=== PATIENT | female | born 1980 | race Caucasian/White ===

== ENCOUNTER 2021-04-30 11:00 | Outpatient (RCR) | payer OTHER, SELFPAY | END 2021-06-23 13:33 | disposition home or self-care (01) | LOC: HO.PTCHIC 11:00 | PROVIDERS: Visit Provider Physician Assistant Medical | DX: M54.6 Pain in thoracic spine (principal); M54.5 Low back pain | CPT/HCPCS: 97014; 97110; 97140; 97161 ==

== ENCOUNTER 2021-07-16 16:27 | Emergency (ER) | payer OTHER, SELFPAY ==
--- NOTE | ~2021-07-16 | XR_ITS ---
EXAMINATION: XR CHEST CLINICAL INFORMATION: Cough COMPARISON: None TECHNIQUE: Frontal view of the chest was obtained. FINDINGS: Lungs are clear. No consolidation, pneumothorax, or pleural effusion. Cardiac and mediastinal contours are normal. Pulmonary vasculature is unremarkable. Trachea is midline. Osseous structures are unremarkable. XR/XR chest 1V IMPRESSION: Normal chest radiograph
[2021-07-16 16:45] VITALS: BP 131/73; PULSE 86; RESP 14; TEMP 37.1; O2SAT 100; BMI 28.2
== END 2021-07-16 20:40 | disposition left against medical advice (07) ==
PROVIDERS: Emergency Provider Emergency Medicine; PCP Internal Medicine
DX: R05.9 Cough, unspecified (principal); R06.02 Shortness of breath
CPT/HCPCS: 71045; 99282; 99283

== ENCOUNTER 2022-06-18 12:32 | Emergency (ER) | payer OTHER, SELFPAY ==
--- NOTE | ~2022-06-18 | CT_ITS ---
EXAMINATION: CT HEAD WITHOUT CONTRAST CT CERVICAL SPINE WITHOUT CONTRAST CLINICAL INFORMATION: Head injury. COMPARISON: CT head 06/10/2013. TECHNIQUE: Mechanical Product Design Engineer images were obtained. CT imaging of the head and cervical spine was performed without contrast. Data was reformatted into multiplanar images at the acquisition workstation. This CT examination was performed using dose optimization techniques as appropriate, including one or more of the following: Automated exposure control, iterative reconstruction, and adjustment of technique factors (mA and/or kVp) according to patient size (this includes techniques or standardized protocols for targeted exams where dose is matched to indication/reason for exam). Fleischner Society criteria for the followup of incidental pulmonary nodules was implemented if appropriate. DLP: 812.96 mGy-cm. FINDINGS: Head: There is no acute intracranial hemorrhage or abnormal extra-axial collection. No intracranial mass effect or midline shift. Lateral and third ventricles are normal. No hydrocephalus. Smith-white matter differentiation is preserved and there is no evidence of acute territorial infarct. The calvarium and skull base are intact. Mastoid air cells and middle ear cavities are well aerated. Mild to moderate paranasal sinus disease primarily affecting the right maxillary sinus and right ethmoid air cells. Cervical spine: There is nonspecific reversal of the cervical or lordosis. Slight anterolisthesis of C5 on C6. Alignment is otherwise normal. Vertebral heights are preserved. No acute fracture. No abnormal prevertebral soft tissue swelling. Grossly no evidence of canal compromise. No bony neuroforaminal encroachment. Soft tissues of the neck including the thyroid gland are normal. Visualized lung apices are clear. CT/CT cervical spine wo IV con IMPRESSION: Unremarkable CT scan of the head and cervical spine.
[2022-06-18 12:58] VITALS: BP 136/73; PULSE 100; RESP 18; TEMP 36.2; O2SAT 98; BMI 34.3
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
== END 2022-06-18 14:55 | disposition home or self-care (01) ==
PROVIDERS: Emergency Provider Student in an Organized Health Care Education/Training Program; PCP Internal Medicine
DX: S06.0X0A Concussion without loss of consciousness, initial encounter (principal); M54.2 Cervicalgia; R51.9 Headache, unspecified; Y04.2XXA Assault by strike against or bumped into by another person, initial encounter; Y93.9 Activity, unspecified; Y92.009 Unspecified place in unspecified non-institutional (private) residence as the place of occurrence of the external cause; Y99.9 Unspecified external cause status
CPT/HCPCS: 70450; 72125; 99282; 99283

== ENCOUNTER 2023-12-21 17:30 | Emergency (ER) | payer OTHER, SELFPAY ==
--- NOTE | ~2023-12-21 | XR_ITS ---
EXAMINATION: XR FOOT, RIGHT XR ANKLE, RIGHT CLINICAL INFORMATION: Pain history of surgery COMPARISON: Right ankle radiograph from 11/15/2016 TECHNIQUE: 2 views right ankle 3 views of the right foot FINDINGS: No acute visible fracture or dislocation. The ankle mortise is symmetric. Mild hallux valgus. Plantar calcaneal heel spur. Enthesopathy at the Achilles tendon insertion site. Pes cavus. Joint space alignment otherwise maintained. Soft tissue prominence about the lateral malleolus. XR/XR foot RT min 3V IMPRESSION: 1. No acute visible fracture or dislocation. 2. Mild hallux valgus. 3. Plantar calcaneal heel spur. 4. Enthesopathy at the Achilles tendon insertion site.
--- NOTE | ~2023-12-21 | XR_ITS ---
EXAMINATION: XR FOOT, RIGHT XR ANKLE, RIGHT CLINICAL INFORMATION: Pain history of surgery COMPARISON: Right ankle radiograph from 11/15/2016 TECHNIQUE: 2 views right ankle 3 views of the right foot FINDINGS: No acute visible fracture or dislocation. The ankle mortise is symmetric. Mild hallux valgus. Plantar calcaneal heel spur. Enthesopathy at the Achilles tendon insertion site. Pes cavus. Joint space alignment otherwise maintained. Soft tissue prominence about the lateral malleolus. XR/XR ankle RT 2V IMPRESSION: 1. No acute visible fracture or dislocation. 2. Mild hallux valgus. 3. Plantar calcaneal heel spur. 4. Enthesopathy at the Achilles tendon insertion site.
[2023-12-21 17:35] VITALS: BP 125/63; PULSE 85; RESP 18; TEMP 36.6; O2SAT 98; BMI 37.1
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
[2023-12-21] MEDS: Acetaminophen 325 MG TABLET 650 MG PO (19:57)
[2023-12-21] MEDS: Ibuprofen 400 MG TABLET PO (19:57)
[2023-12-21 20:02] VITALS: BP 130/83; PULSE 67; RESP 16; TEMP 36.8; O2SAT 99
== END 2023-12-21 20:03 | disposition home or self-care (01) ==
PROVIDERS: Emergency Provider Student in an Organized Health Care Education/Training Program; PCP Internal Medicine
DX: M77.31 Calcaneal spur, right foot (principal); M25.571 Pain in right ankle and joints of right foot
CPT/HCPCS: 73600; 73630; 99283; 99284

== ENCOUNTER 2024-07-30 16:56 | Emergency (ER) | payer BC, SELFPAY ==
--- NOTE | ~2024-07-30 | XR_ITS ---
CLINICAL HISTORY: cough 2 view chest x-ray Comparison: None Findings: No consolidation or effusion. Heart size is normal. No acute fracture. IMPRESSION: 1. No acute findings. This document has been electronically signed by: Imani Fleming MD on 07/31/2024 01:28:57
--- NOTE | ~2024-07-30 | CT_ITS ---
CLINICAL HISTORY: loss of consciousness CT head without contrast Comparison: CT/SR - CT HEAD/BRAIN WO IV CON - 06/18/22 13:10 EST Findings: No intra-axial mass, midline shift, hydrocephalus, or acute hemorrhage. No significant atrophy-like change or white matter disease. There is no sinus or mastoid fluid. The orbits are unremarkable. There is no acute fracture. IMPRESSION: 1. No acute intracranial findings This document has been electronically signed by: Miranda Marcum MD on 07/30/2024 19:39:17
--- NOTE | 2024-07-30 17:42 | ED_ITS ---
HPI - General Adult General Chief complaint: General Medical Stated complaint: loss of consciousness for couple of hours Time Seen by Provider: 07/31/24 00:06 Source: patient Limitations: no limitations History of Present Illness ED Provider: Jennifer Chaparro PA-C HPI narrative: 43-year-old female presents with multiple complaints. Patient states she took a friend's 10 mg Percocet this morning due to back pain. Patient states she was getting ready for work at the time. She then woke up over an hour later, her daughter was trying to reach her. The patient does not recall falling asleep. Patient denies use of alcohol or other illicit substances, she has used Percocet in the past without this type of a response. Denies headache, dizziness, visual changes. Denies chest pain palpitations or shortness of breath. Patient does note that she has been fatigued for quite some time, with the associated polyuria and polydipsia. She is asking if she could be diabetic. Related Data Previous Rx's ?Medication ?Instructions ?Recorded methocarbamol 750 mg tablet 750 mg PO Q8H #14 tabs 06/18/22 oxycodone 5 mg tablet 5 mg PO Q6H PRN pain #14 tabs 06/18/22 Allergies Allergy/AdvReac Type Severity Reaction Status Date / Time bee pollen [BEE STINGS] Allergy Severe ANAPHYLAXIS Verified 07/30/24 17:45 sumatriptan [From IMITREX] Allergy Severe EXACERBATES Verified 07/30/24 17:45 MIGRAINE codeine [CODEINE] Allergy Unknown ITCH RASH Verified 07/30/24 17:45 From VICODIN Allergy Unknown NAUSEA Uncoded 12/21/23 17:37 Review of Systems 2 Review of Systems: Yes all other systems are reviewed and are negative Constitutional: Constitutional: Reports fatigue, Denies fever(s) and Denies malaise Eyes: Eyes: Denies change in vision Cardiovascular: Cardiovascular: Denies chest pain, Denies irregular heart rhythm, Denies palpitations and Denies dyspnea Respiratory: Respiratory: Denies cough and Denies dyspnea Gastrointestinal: Gastrointestinal: Denies abdominal pain, Denies nausea and Denies vomiting Genitourinary: Genitourinary: Reports other (Polyuria polydipsia) Endocrine: Endocrine: Reports fatigue and Denies palpitations PMFSH Past Medical History Attestation statement: The following information was validated with the patient. Physical Exam ED Vital Signs: Vital Signs - 24 hr 07/30/24 17:43 07/31/24 00:54 07/31/24 00:55 Temperature 98.6 F Pulse Rate 117 H 125 H 125 H Respiratory Rate 18 Blood Pressure 143/85 H 126/66 114/72 Pulse Oximetry 99 Oxygen Delivery Method Room Air 07/31/24 00:55 Temperature Pulse Rate 136 H Respiratory Rate Blood Pressure 113/70 Pulse Oximetry Oxygen Delivery Method BMI result Body Mass Index 31.0 Const Other: Alert, appears older than stated age Orientation/consciousness: patient oriented x3 Eyes Other: Pinpoint pupils Resp Effort & Inspection: normal respiratory effort Cardio Other: Normal peripheral perfusion Skin Other: Warm dry no rash Neuro General: patient oriented x3, no focal motor deficits and CN's II-XI intact bilaterally Psych Other: Cooperative question intoxication Course Course Course Narrative: This is a rapid medical exam performed by Alison Camacho DIRECTOR SPEECH: Additional HPI, ROS, PE not included below will be deferred to primary provider. Patient is a 43-year-old female presenting with report of loss of consciousness this morning. States she woke up at 7am, began doing work on her computer. States last thing she remembers it was 8:45, next thing she knew she woke with a phone call from her daughter at 10:30. States she was sitting upright on the couch, does not remember fall asleep. Also complains of dizziness, blurred vision. States she did take a 10mg Percocet this morning (does not want her sister or to know that she took this) but has never has this type of reaction to that medication. Also reports difficulty swallowing. Plan: labs, urine drug screen, EKG Reevaluation(s) Reevaluation #1: Patient is spilling sugar in her urine, however her serum glucose is 98, we will give IV fluid Reevaluation #2: Heart rate improved with IV fluid Medications Administered Discontinued Medications Generic Name Dose Route Start Last Admin Trade Name Freq PRN Reason Stop Dose Admin Sodium Chloride 1,000 mls @ 999 mls/hr 07/31/24 01:30 07/31/24 02:52 Ns IV 07/31/24 02:30 Infused .Q1H1M MANJU Infusion Medical Decision Making Medical Decision Making MDM Narrative: 43-year-old female presents with multiple complaints. Patient states she took a friend's 10 mg Percocet this morning due to back pain. Patient states she was getting ready for work at the time. She then woke up over an hour later, her daughter was trying to reach her. The patient does not recall falling asleep. Patient denies use of alcohol or other illicit substances, she has used Percocet in the past without this type of a response. Denies headache, dizziness, visual changes. Denies chest pain palpitations or shortness of breath. Patient does note that she has been fatigued for quite some time, with the associated polyuria and polydipsia. She is asking if she could be diabetic. Problem: Polyuria or polydipsia History: Per patient I have considered the following differential diagnoses: New onset diabetes, new arrhythmia, vasovagal syncope, drug/alcohol intoxication Plan: Patient here with multiple complaints. In regard to the polyuria polydipsia, this is concerning for new onset diabetes. Screening labs in process she will be giving a urine sample. The patient made a comment from triage that she did not want her family to know that she took Percocet this morning. This is a concerning statement. Her pupils are pinpoint and she readily is falling asleep in the exam room. I am concerned for other substances that may be on board. We will be obtaining a U tox and a serum ethanol. Does not sound like vasovagal syncope, the patient had no preceding symptoms. EKG was obtained as well as a chest x-ray. She never collapsed with a head strike, but CT of the brain was obtained as well. I have independently reviewed the following tests: Labs: Leukocytosis, not anemic, no electrolyte abnormality, spilling sugar in her urine, is not infected, U tox negative serum ethanol negative EKG: Sinus tachycardia, rate of 121, no ischemic changes no ectopy, QTC 448 Chest x-ray: Findings: No consolidation or effusion. Heart size is normal. No acute fracture. IMPRESSION: 1. No acute findings. This document has been electronically signed by: Imani Fleming MD on CT head: indings: No intra-axial mass, midline shift, hydrocephalus, or acute hemorrhage. No significant atrophy-like change or white matter disease. There is no sinus or mastoid fluid. The orbits are unremarkable. There is no acute fracture. IMPRESSION: 1. No acute intracranial findings This document has been electronically signed by: Miranda Marcum MD on 07/30/2024 19:39:17 Lab Data 07/30/24 17:58 07/30/24 17:58 Labs: Lab Results 07/30/24 07/31/24 Range/Units 17:58 00:51 WBC 18.1 H (4.8-10.8) X10*3/uL RBC 4.65 (4.20-5.50) X10*6/uL Hgb 12.8 (12.0-16.0) g/dl Hct 39.2 (37.0-47.0) % MCV 84.3 (80.0-98.0) fL MCH 27.5 (27.0-33.0) pg MCHC 32.7 (31.0-35.0) g/dl RDW 14.0 (11.0-16.0) % Plt Count 309 (160-400) X10*3/uL MPV 10.7 (9.4-12.3) fL Immature Gran % (Auto) 0.5 H (0.0-0.4) % Neut % (Auto) 79.6 H (45-73) % Lymph % (Auto) 11.1 L (20-40) % [place] % (Auto) 7.4 (2-11) % Eos % (Auto) 1.0 (0-4) % Baso % (Auto) 0.4 (0-2) % Lymph # (Auto) 2.0 (1.2-4.9) X10*3/uL [place] # (Auto) 1.3 H (0.1-1.2) X10*3/uL Eos # (Auto) 0.2 (0.0-0.4) X10*3/uL Baso # (Auto) 0.1 (0.0-0.2) X10*3/uL Abs Immat Gran (auto) 0.09 H (0.00-0.03) X10*3/uL Absolute Neuts (auto) 14.4 H (2.0-8.3) x10*3/uL Absolute Nucleated RBC 0.000 (0.0-0.012) X10*3/uL Nucleated RBC % (auto) 0.0 (0.0-0.2) /100WBC Sodium 136 (135-145) mmol/L Potassium 4.3 (3.3-5.1) mmol/L Chloride 105 (96-108) mmol/L Carbon Dioxide 24 (22-29) mmol/L Anion Gap 11 L (12-20) BUN 8 L (9-16) mg/dL Creatinine 0.65 (0.5-1.4) mg/dL Estim Creat Clear Calc 125.3 Estimated GFR > 60 Random Glucose 98 (60-115) mg/dL Calcium 9.1 (8.4-10.2) mg/dL Magnesium 1.9 (1.6-2.6) mg/dL Total Bilirubin 0.4 (0.0-1.0) mg/dL AST 19 (5-31) U/L ALT 10 (0-31) U/L Alkaline Phosphatase 66 (39-117) U/L Total Protein 7.2 (6.5-8.0) g/dL Albumin 4.2 (3.5-5.0) g/dL Beta HCG, Quant < 2 mIU/mL Urine Color Yellow Urine Appearance Clear Urine pH 5.5 (5.0-9.0) Ur Specific Left Hand 1.010 (1.005-1.025) Urine Protein Negative (Neg-Trace) mg/dL Urine Glucose (UA) 100 H (Negative) mg/dL Urine Ketones Negative (Negative) mg/dL Urine Blood Negative (Negative) Urine Nitrite Negative (Negative) Ur Leukocyte Esterase Negative (Negative) Urine Opiates Screen Not Detected (Not Detect) Ur Buprenorphine Scrn Not Detected (Not Detect) ng/mL Ur Oxycodone Screen Not Detected (Not Detect) ng/mL Urine Methadone Screen Not Detected (Not Detect) ng/mL Urine Fentanyl Screen Not Detected (Not Detect) Ur Barbiturates Screen Not Detected (Not Detect) Ur Phencyclidine Scrn Not Detected (Not Detect) Ur Amphetamines Screen Not Detected (Not Detect) U Benzodiazepines Scrn Not Detected (Not Detect) Urine Cocaine Screen Not Detected (Not Detect) U Marijuana (THC) Screen Not Detected (Not Detect) Ethyl Alcohol < 10 mg/dL Influenza Type A (PCR) NEGATIVE (Negative) Influenza Type B (PCR) NEGATIVE (Negative) RSV RNA Qual (PCR) NEGATIVE (Negative) SARS-CoV-2 RNA (RT-PCR) NEGATIVE (Negative) S. pyogenes GrpA ESTRADA Negative (Negative) Discharge Plan Discharge Clinical Impression: Glycosuria with normal serum glucose Patient Disposition: Home, Self-Care Instructions: Type 2 Diabetes in Adults: New Diagnosis (ED) Additional Instructions: You were found to have sugar in your urine sample, it is suspect that you may be a new diabetic. However your serum blood sugar was normal. See home care instructions. You need to follow up with your primary care provider to have fasting blood labs including an A1c, to determine if you truly are diabetic. The remainder of your labs were normal. The CT scan of your head was normal. Call your primary care provider today to make an appointment. Prescriptions: No Action methocarbamol 750 mg tablet 750 mg PO Q8H Qty: 14 0RF oxycodone 5 mg tablet 5 mg PO Q6H PRN (Reason: pain) Qty: 14 0RF Rx Instructions: Partial Fill upon patient request. Stand Alone Forms: Work/School Release Interventions: ED Discharge Assessment Last Done: 07/31/24 03:33 Discharge Date/Time: 07/31/24 03:35 Print Language: Syriac
[2024-07-30 17:43] VITALS: BP 143/85; PULSE 117; RESP 18; TEMP 37; O2SAT 99; BMI 31.0
--- NOTE | 2024-07-30 17:46 | ECG_ITS ---
Test Reason : LOSS OF CONSCIOUSNESS Blood Pressure : */* mmHG Vent. Rate : 121 BPM Atrial Rate : 121 BPM P-R Int : 130 ms QRS Dur : 72 ms QT Int : 316 ms P-R-T Axes : 14 -17 1 degrees QTcB Int : 448 ms Sinus tachycardia Minimal voltage criteria for LVH, may be normal variant ( R in aVL ) Anterolateral infarct , age undetermined Abnormal ECG No previous ECGs available Referred By: Vickie Camacho Electronically Signed By: Juan Jose Lange
[2024-07-30 18:07] LABS: MANUAL DIFF FLAG NO
[2024-07-30 18:16] LABS: IDNOW Serial# 08D9AD1C; Strep A Nucleic Acid Negative (Negative)
[2024-07-30 18:22] LABS: Basophils Absolute Auto 0.1 X10*3/uL (0.0-0.2); Basophils Percent Auto 0.4 % (0-2); Eosinophils Absolute Auto 0.2 X10*3/uL (0.0-0.4); Hematocrit 39.2 % (37.0-47.0); Hemoglobin 12.8 g/dl (12.0-16.0); Imm Gran Abs Auto 0.09 X10*3/uL (0.00-0.03); Imm Gran Pct Auto 0.5 % (0.0-0.4); Lymphocytes Percent Auto 11.1 % (20-40); Mean Corpuscular HGB Conc 32.7 g/dl (31.0-35.0); Mean Corpuscular Hemoglobin 27.5 pg (27.0-33.0); Mean Corpuscular Volume 84.3 fL (80.0-98.0); Mean Platelet Volume 10.7 fL (9.4-12.3); Monocytes Absolute Auto 1.3 X10*3/uL (0.1-1.2); Monocytes Percent Auto 7.4 % (2-11); Neutrophils Absolute Auto 14.4 x10*3/uL (2.0-8.3); Neutrophils Percent Auto 79.6 % (45-73); Platelet Count 309 X10*3/uL (160-400); Red Blood Count 4.65 X10*6/uL (4.20-5.50); White Blood Count 18.1 X10*3/uL (4.8-10.8)
[2024-07-30 18:42] LABS: Alanine Aminotransferase 10 U/L (0-31); Albumin Level 4.2 g/dL (3.5-5.0); Alkaline Phosphatase 66 U/L (39-117); Anion Gap 11 (12-20); Aspartate Amino Transferase 19 U/L (5-31); Bilirubin Total 0.4 mg/dL (0.0-1.0); Blood Urea Nitrogen 8 mg/dL (9-16); Calcium 9.1 mg/dL (8.4-10.2); Carbon Dioxide 24 mmol/L (22-29); Chloride 105 mmol/L (96-108); Creatinine Clr Calc Pharmacy 125.3; Estimated Glomerular Filt Rate > 60; Ethanol < 10 mg/dL; Glucose Random 98 mg/dL (60-115); HCG Quantitative < 2 mIU/mL; Magnesium 1.9 mg/dL (1.6-2.6); Potassium 4.3 mmol/L (3.3-5.1); Sodium 136 mmol/L (135-145); Total Protein 7.2 g/dL (6.5-8.0)
[2024-07-30 19:05] LABS: Influenza A PCR NEGATIVE (Negative); Influenza B PCR NEGATIVE (Negative); Resp Syncy Virus RNA Qual PCR NEGATIVE (Negative); SARS COV2 PCR INHOUSE NEGATIVE (Negative)
[2024-07-31 00:54] VITALS: BP 126/66; PULSE 125
[2024-07-31 00:55] VITALS: BP 113/70; BP 114/72; PULSE 125; PULSE 136
[2024-07-31 01:00] LABS: Appearance Urine Clear; Color Urine Yellow; Glucose Urine UA 100 mg/dL (Negative); Leukocyte Esterase Urine Negative (Negative); Nitrite Urine Negative (Negative); PH 5.5 (5.0-9.0); Urine Blood Negative (Negative); Urine Ketones Negative (Negative); Urine Protein Negative (Neg-Trace)
[2024-07-31 01:15] LABS: Amphetamine Screen Urine Not Detected (Not Detect); Barbiturates, Urine Not Detected (Not Detect); Benzodiazepines Screen Urine Not Detected (Not Detect); Buprenorphine Scr Not Detected (Not Detect); Cannabinoid Screen Urine Not Detected (Not Detect); Cocaine Screen Urine Not Detected (Not Detect); Fentanyl, urine Not Detected (Not Detect); Methadone Screen, Urine Not Detected (Not Detect); Opiate Screen Urine Not Detected (Not Detect); Oxycodone Screen Urine Not Detected (Not Detect); Phencyclidine Screen Urine Not Detected (Not Detect)
[2024-07-31] MEDS: 0.9 % Sodium Chloride 1,000 ML 999 ML IV (01:33)
[2024-07-31 03:25] VITALS: BP 109/71; PULSE 110; RESP 14; TEMP 36.7; O2SAT 97
[2024-07-31 03:33] VITALS: BP 109/71; PULSE 110; RESP 14; TEMP 36.7; O2SAT 97
== END 2024-07-31 03:35 | disposition home or self-care (01) ==
PROVIDERS: Physician Assistant Medical; Registered Nurse Emergency; Emergency Provider Emergency Medicine; PCP Internal Medicine
DX: R81 Glycosuria (principal); Z03.818 Encounter for observation for suspected exposure to other biological agents ruled out; R00.0 Tachycardia, unspecified; Z79.899 Other long term (current) drug therapy
CPT/HCPCS: 0241U; 70450; 71046; 80053; 80307; 81003; 83735; 84702; 85025; 87651; 93005; 96360; 99284

== ENCOUNTER → 2024-07-30 17:46 | Outpatient (BNV) | payer BC, SELFPAY | PROVIDERS: PCP Internal Medicine; Visit Provider Nuclear Medicine | DX: R55 Syncope and collapse (principal) | CPT/HCPCS: 70450 ==

== ENCOUNTER → 2024-07-30 17:46 | Outpatient (BNV) | payer BC, SELFPAY | PROVIDERS: Emergency Provider Emergency Medicine; PCP Internal Medicine; Visit Provider Internal Medicine Cardiovascular Disease | DX: R00.0 Tachycardia, unspecified (principal) | CPT/HCPCS: 93010 ==

== ENCOUNTER → 2024-07-31 00:28 | Outpatient (BNV) | payer BC, SELFPAY | PROVIDERS: Emergency Provider Emergency Medicine; PCP Internal Medicine; Visit Provider Radiology Diagnostic Radiology | DX: R05.9 Cough, unspecified (principal) | CPT/HCPCS: 71046 ==